=== PATIENT | male | born 1950 | race African-American/Black ===

== ENCOUNTER 2023-04-28 14:54 | Emergency (ER) | payer OTHER ==
[~2023-04-28] VITALS: Ht 190.5 cm; Wt 113.0 kg
[2023-04-28 15:00] VITALS: O2SAT 96
[2023-04-28] MEDS ORDERED: LOSA50TA41 PO (15:08)
[2023-04-28] MEDS ORDERED: CHOL200077 (15:08)
[2023-04-28] MEDS ORDERED: METO-385 PO (15:08)
[2023-04-28] MEDS ORDERED: RIVA20TA PO (15:08)
[2023-04-28 15:52] LABS: BASOPHILS % 0.3 % (0.0-2.0); EOSINOPHILS % 3.6 % (0.0-5.0); LYMPHOCYTES % 17.7 % (20.0-50.0); MEAN CORPUSCULAR HEMOGLOBIN 32.3 pg (28.0-32.0); MEAN CORPUSCULAR VOLUME 96.8 fL (80.0-94.0); MEAN PLATELET VOLUME 8.4 fl (7.4-10.4); MONOCYTES % 8.1 % (2.0-8.0); NEUTROPHILS % 70.3 % (40.0-76.0); PLATELET 200 x1000/uL (130-400); RED BLOOD CELL COUNT 4.34 mill/uL (4.7-6.1); RED CELL DISTRIBUTION WIDTH 14.5 % (11.6-14.6)
[2023-04-28 16:00] LABS: CHLORIDE 110 mEq/L (98-107)
[2023-04-28 16:13] LABS: ETHANOL BLOOD 10 mg/dL (-10)
[2023-04-28 21:35] VITALS: BP 143/93; PULSE 89; RESP 15; TEMP 98
== END 2023-04-28 22:25 | disposition home or self-care (01) ==
LOC: ER 14:54
DX: R55 Syncope and collapse (principal); I48.91 Unspecified atrial fibrillation; I10 Essential (primary) hypertension; I25.2 Old myocardial infarction
CPT/HCPCS: 36415; 71045; 80053; 80320; 83880; 84484; 85025; 93005; 99285; G0480